=== PATIENT | female | born 1965 | race Caucasian/White ===

== ENCOUNTER 2017-08-05 18:10 | Emergency (ER) | payer OTHER ==
[2017-08-05] MEDS: morphine 2 MG INJ IV (18:43)
[2017-08-05] MEDS: ONDANSETRON 4 MG INJ IV (18:44)
[2017-08-05] MEDS: SODIUM CHLORIDE 0.9% 1L BAG IV* (18:44)
[2017-08-05] MEDS: CEFEPIME 2GM/50 ML (PMX) 50 ML IVPB (18:44)
[2017-08-05] MEDS: LABETALOL HCL 20MG INJ IV (18:53)
[2017-08-05] MEDS: ASPIRIN 81 MG TAB PO (18:53)
[2017-08-05 18:59] LABS: ABNORMAL IP MESSAGE 1; HEMATOCRIT 38.6 % (37.0-47.0); HEMOGLOBIN 13.2 g/dl (12.0-16.0); MEAN CORPUSCULAR HEMOGLOBIN 28.9 pg (29.0-33.0); MEAN CORPUSCULAR HGB CONC 34.2 g/dl (32.0-37.0); MEAN CORPUSCULAR VOLUME 84.5 fl (82.0-101.0); PLATELET COUNT 90 10^3/UL (140-415); RED BLOOD COUNT 4.57 10^6/ul (4.20-5.40)
[2017-08-05 18:59] LABS: WHITE BLOOD COUNT 13.5 10^3/ul (4.8-10.8)
[2017-08-05 19:05] LABS: ADD MAN DIFF? YES; POSITIVE DIFF @See below
[2017-08-05 19:19] LABS: ALANINE AMINOTRANSFERASE 16 IU/L (13-69); ALBUMIN 4.7 g/dl (3.3-4.9); ALKALINE PHOSPHATASE 67 IU/L (42-121); ANION GAP 21 (8-16); ASPARTATE AMINO TRANSFERASE 24 IU/L (15-46); BILIRUBIN,INDIRECT 0.1 mg/dl (0-1.1); BILIRUBIN,TOTAL 0.1 mg/dl (0.2-1.3); BLOOD UREA NITROGEN 15 mg/dl (7-20); CALCIUM 10.2 mg/dl (8.4-10.2); CARBON DIOXIDE 26 mmol/L (21-31); CHLORIDE 103 mmol/L (97-110); CREATININE 0.67 mg/dl (0.44-1.00); GLUCOSE 136 mg/dl (70-220); POTASSIUM 3.4 mmol/L (3.5-5.1); SODIUM 147 mmol/L (135-144); TOTAL PROTEIN 8.6 g/dl (6.1-8.1)
[2017-08-05 19:28] LABS: LACTIC ACID 3.5 mmol/L (0.5-2.0)
[2017-08-05 19:33] LABS: TROPONIN-I < 0.012 ng/ml (0.00-0.12)
[2017-08-05 19:40] LABS: PARTIAL THROMBOPLASTIN TIME 28.5 Sec (25.0-35.0)
[2017-08-05 20:03] LABS: PROTIME 13.3 Sec (11.9-14.9)
[2017-08-05 20:07] LABS: ADD UMIC YES; UR ASCORBIC ACID NEGATIVE (NEGATIVE); UR BACTERIA FEW /HPF (NONE SEEN); UR BILIRUBIN (Dip) NEGATIVE (NEGATIVE); UR BLOOD (Dip) NEGATIVE (NEGATIVE); UR CLARITY SLIGHTLY CLOUDY (CLEAR); UR COLOR YELLOW (YELLOW); UR GLUCOSE (Dip) NEGATIVE (NEGATIVE); UR KETONES (Dip) NEGATIVE (NEGATIVE); UR LEUKOCYTE ESTERASE (Dip) 3+ Leu/ul (NEGATIVE); UR MUCUS FEW /HPF (NONE SEEN); UR NITRITE (Dip) NEGATIVE (NEGATIVE); UR RBC 3 /HPF (0-5); UR SPECIFIC GRAVITY (Dip) 1.015 (1.003-1.030); UR SQUAMOUS EPITHELIAL CELL FEW /HPF (FEW); UR TOTAL PROTEIN (Dip) NEGATIVE (NEGATIVE); UR UROBILINOGEN (Dip) NEGATIVE (NEGATIVE); UR WBC 31 /HPF (0-5)
[2017-08-05] MEDS: IOHEXOL 100 ML (20:51)
[2017-08-05] MEDS: SOD CHLORIDE 0.9% 100 ML (20:51)
[2017-08-05] MEDS: POTASSIUM CHLORIDE (SR) 20 MEQ TAB PO (21:23)
[2017-08-05 22:43] LABS: MAGNESIUM 1.7 mg/dl (1.7-2.5)
[2017-08-05] MEDS ORDERED: LORAZEPAM 2 MG INJ IV (23:00)
[2017-08-05 23:50] LABS: LACTIC ACID 1.8 mmol/L (0.5-2.0)
== END 2017-08-06 00:35 | disposition left against medical advice (07) ==
LOC: E/R 08-06 00:35
DX: A41.9 Sepsis, unspecified organism (principal); R65.20 Severe sepsis without septic shock; R06.03 Acute respiratory distress; R07.9 Chest pain, unspecified; D69.6 Thrombocytopenia, unspecified; I10 Essential (primary) hypertension; J45.909 Unspecified asthma, uncomplicated; Z79.82 Long term (current) use of aspirin
CPT/HCPCS: 36415; 71045; 71275; 80053; 81001; 83605; 83735; 84484; 85025; 85610; 85730; 87040; 87086; 93005; 96374; 96375; 99291-25